=== PATIENT | male | born 1930 | race Caucasian/White ===

== ENCOUNTER 2016-08-15 10:00 | Outpatient (CLI) | payer MEDICARE, OTHER | END 2016-08-15 10:01 | disposition home or self-care (01) | DX: G30.9 Alzheimer's disease, unspecified (principal); F02.81 Dementia in other diseases classified elsewhere, unspecified severity, with behavioral disturbance; G20 Parkinson's disease; F32.9 Major depressive disorder, single episode, unspecified; Z91.81 History of falling; Z99.3 Dependence on wheelchair; Z79.82 Long term (current) use of aspirin; Z79.891 Long term (current) use of opiate analgesic; Z79.899 Other long term (current) drug therapy; Z66 Do not resuscitate; Z51.5 Encounter for palliative care ==

== ENCOUNTER 2016-10-30 09:15 | Outpatient (CLI) | payer MEDICARE, OTHER ==
--- NOTE | 2016-10-31 15:23 | CONSULTATION NOTE ---
DATE OF CONSULTATION: 10/30/2016 00:00:00 REQUESTING PROVIDER: Zahraa Hubbard MD TIME OF VISIT: 0915 to 10 a.m. TOPIC: Followup palliative care consult. Thank you, Dr. Hubbard, for asking the palliative care consult service to be involved in the care of y our patient. I am seeing the patient in his home setting, which is [facility] dementia unit, with a joint visit with his Kelly and to provide [id number] for a [id number]-[id number] wheelchair. EXAM LIMITATIONS: The patient has end-stage dementia with Parkinson's and behavioral disturbances. He has limited ability to participate in the exam. 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 These have improved in the context of he is more cooperative, less lashing out, only intermittent moaning. He does have fluctuating days that are both good and bad, and does have some sundowning related to this. He is quite willing to engage in conversation. He appears to have less fluency of his speech today, his words and sentences are yamilex rter, they are somewhat nonsensical, but occasionally do match the conversation. He does not appear t o recognize his and does spend probably a fair amount of time sleeping or nodding off, particula rly in his wheelchair. He does need to be fed. He does get impulsive at times and this, particularly in his current wheelchair, causes him to slip out. He has had no injury falls recently, but it is of concern. Thus, the initiation of obtaining a kpde-hj-[id number] wheelchair. SYMPTOM BURDEN: When asked, the patient denies any pain or discomfort. Staff reports he does fatigue quite easily. His appetite has been good. He has remained weight neutral, his weight in September was 181 .4. He does not appear to have any kind of shortness of breath. Does not appear to have any exacerbat ing symptoms as far as anxiety. His though perceives his quality of life as currently poor and p erceives it just "as existing." She is pleased that he is not having as many outbursts. PERFORMANCE STATUS: The patient is unable to feed himself because of his upper extremity tremulousnes s. He can self-propel in his wheelchair though this is difficult because of his awkward position. He is a maximum 2-person assist to the bathroom, is able to ambulate a few steps. He is dependent for al l ADLs and IADLs. ALLERGIES: NO KNOWN DRUG ALLERGIES. MEDICATIONS 1. Acetaminophen 2 tabs 650 mg b.i.d. 2. Aspirin 81 mg daily. 3. Citalopram 20 mg daily. 4. Galantamine extended release 8 mg twice daily. 5. Levothyroxine 50 mcg daily. 6. Lorazepam 0.5 mg half tab at noon, full tab at bedtime. 7. Amantadine 1 tab twice daily. 8. MiraLax 17 grams in 8 ounces b.i.d. 9. Quetiapine 25 mg 1 tab in the a.m., 50 mg 1 tab at 1 p.m. and 1 tab at 9 p.m. 10. Hydrocodone/acetaminophen 5/325 1 to 2 tabs every 6 hours as needed for pain. 11. Loratadine 10 mg as needed for runny nose. 12. Lorazepam 0.5 mg 1 to 2 tabs every 4 hours as needed for severe agitation. CODE STATUS: THE PATIENT IS A DO NOT ATTEMPT RESUSCITATION, COMFORT MEASURES ONLY, WELL NO MEDI VENKATESH ASSISTED NUTRITION, DETERMINE USE OR LIMITATION OF ANTIBIOTICS WITH COMFORT GOAL. THE FAMILY 'S GOALS FOR HIM ARE TO FOCUS ON COMFORT, AVOID HOSPITALIZATION AT END OF LIFE, A COMFORTABLE AND RES PECTFUL HERE AT THE FACILITY. BRIEF SOCIAL HISTORY: The patient is living at [facility]. His visits about every other day. Cira esparza herself is elderly and has health problems. His continues to struggle both financially and emo tionally with his ongoing quality of life and needing to be at [facility]. She does have the support of her family. REVIEW OF SYSTEMS: This is limited by available information. He has not had any reported symptoms of swallowing difficulty. He is incontinent of both bowel and bladder. He denies chest pain or shortness of breath. He denies pain and it does appear as he has gotten further out from that his pain has imp roved. He does get an intermittent pain pill about once a week. PHYSICAL EXAMINATION GENERAL APPEARANCE: He does appear quite pale, making good eye contact. He does have watery eyes. He tries to engage in conversation and follow it. EYES: Normal on inspection. ENT: Mucous membranes are moist. It does not appear that he has any lesions on examination. He will b e going every 4 months for cleaning. He does have some baseline drooling. He has completed his work w ith speech therapy. NECK: Trachea midline, no JVD, no lymphadenopathy. RESPIRATORY: His breath sounds are diminished, but clear. CARDIOVASCULAR: His temperature is 96.5, pulse 76, blood pressure 148/72, O2 saturations were 95% at rest. ABDOMEN: Soft, flat, bowel tones are positive. SKIN: Dry. No noted injury of his extremities. He is in his wheelchair quite awkwardly, so unable to examine his coccyx though staff report is clear. EXTREMITIES: He does have some increased right hand contracture. 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 Is some what toning and unable to sit comfortably in the current wheelchair he has. He does lean to the right and tone back somewhat. His upper extremity tremors are right greater than left, those seem improved to date. PALLIATIVE CARE DISCUSSION: The patient denies he is worried about anything. He is less verbal today though still attempts to participate. I discussed with again pill burden, weighing the benefits and burdens of continuing on his Alzheimer medications. At this point in time we will continue, thoug h the evidence sways back and forth. Pain does seem to be improved. We will discontinue his acetamino phen scheduled and evaluate. IMPRESSION: This is an 85-year-old gentleman with progressive Alzheimer's, severe, with a comorbidity of Parkinson's. He does have fluctuating behavioral disturbances, but are better managed from his ba seline. He does seem to have perked up with some decreasing Seroquel. Will leave it at current level and continue to evaluate. RECOMMENDATIONS/COUNSELING DONE 1. Dementia with behavioral disturbances. He is not needing any increased lorazepam, has tolerated th e decrease in Seroquel. perceives this as more helpful, has not seem to have impacted his fluctu ations in mood. 2. Constipation, currently resolved. 3. Chronic hip pain. This appears to be improved as well. Will discontinue the scheduled acetaminophe n. 4. Advanced care planning. Continue to revisit quality of life issues and focus on things that are no t life-prolonging but enhancing for his comfort. 5. Pqyf-du-hcho for obtaining a mvqu-ul-fsxfj wheelchair. In agreement with physical therapy [facility] ir seating and mobility evaluation. The patient has had continued functional and cognitive decline, d oes need a utip-rx-knzvm wheelchair with a head rest. He is unable to support, he bends forward with his Parkinson's, he is unable to reposition himself and has high risk for pressure sores. He is incon tinent of bowel and bladder. The aujd-qs-zukqh would provide improved posture and ability to particip ate in meals and activities. Currently will need also, as patient's disease progresses, for safety fo r swallowing as well as management of his secretions. TIME SPENT: Forty-five minutes with greater than 50% of this done in counseling and coordination of c are within the facility, coordination with rehabilitation services as well as with clinical staff. JOB #: [id number] EXT JOB #:[id number]
== END 2016-10-30 09:16 | disposition home or self-care (01) ==
LOC: PC 09:15
PROVIDERS: ATTEND Nurse Practitioner Adult Health
DX: Z51.5 Encounter for palliative care (principal); G20 Parkinson's disease; F02.81 Dementia in other diseases classified elsewhere, unspecified severity, with behavioral disturbance; M25.559 Pain in unspecified hip; Z79.82 Long term (current) use of aspirin; Z66 Do not resuscitate

== ENCOUNTER 2017-03-07 13:15 | Outpatient (CLI) | payer MEDICARE, OTHER ==
--- NOTE | 2017-03-07 18:10 | CONSULTATION NOTE ---
Palliative Care Follow Up - Referral Referring Provider: Heather Hubbard MD Time of Visit: 1199-4038 Referral setting: Assisted living Referral Reason: Parkinsons - Information Sources Records reviewed: RN notes reviewed History/Review of Systems obtained from: Family, Caregiver Exam limitations: Clinical condition (Patient with susanna bazzi; very lethargic through exam) - History of Present Illness Update Brief HPI Update: This is an 86-year-old gentleman with Alzheimer's type dementia mixed with vascular dementia and noted behavioral disturbances. His underlying diagnosis is actually Parkinson's which he has had for greater than 20 years. I last saw him in October, he has continued to decline both functionally and cognitively. He is now mostly wheelchair bound, using Sadaf lift for transfers, unable to feed himself at all. He is sleeping more probably about 60% the time during waking hours. Is up for meals and some activities. Cognitively he today presents with word rose mary, his reports he still recognizes her but is having most nonsensical speech. Currently now his responses are not matching conversation. 's main concern is has been his extended sleeping time, and review of his medications they had actually overmedicated him with the Lorazepam for about 2 weeks, she reports this would match her time of observation. She was not aware of this mistake being made. We had considered decreasing his Seroquel, as he has had decline, and may not need the current dosing. She is in agreement for trialing this, he still has some moaning at times, this is usually response to anxiety. Patient has had a new wheelchair, tilt in space, this has resulted in less falls, they have also moved him closer to the other wall and using a wedge to help with him getting out of bed unsupervised. Social History - Living Situation Living arrangement: Assisted living Support System: Kelly comes and visits every other day, she she comes at lunch to assist with feeding. He does have other children and grandchildren that visit intermittently, he does enjoy the visits but does not recognize them currently Medications/Allergies - Medications Home Medications: Ambulatory Orders Medication Instructions Recorded Confirmed Aspirin [Low Dose Aspirin EC] 81 mg PO DAILY 07/20/13 03/07/17 Memantine HCl [Namenda] 10 mg PO BID 07/20/13 03/07/17 Galantamine [Razadyne] 8 mg PO BID 09/06/15 03/07/17 Levothyroxine Sodium 50 mcg PO DAILY 09/06/15 03/07/17 Acetaminophen 500 mg PO Q4HR PRN 03/07/17 03/07/17 Citalopram [CeleXA] 10 mg PO DAILY 03/07/17 03/07/17 HYDROcod/ACETAM 5/325 [[place] 5/325] 1 - 2 tab PO Q6HR PRN 03/07/17 03/07/17 LORazepam [Ativan] 0.5 mg PO DAILY PM 03/07/17 03/07/17 Loratadine 10 mg PO DAILY PRN 03/07/17 03/07/17 Lorazepam 0.5 mg PO Q4HR PRN 03/07/17 03/07/17 Polyethylene Glycol 3350 [Miralax] 17 gm PO BID 03/07/17 03/07/17 QUEtiapine [SEROquel] 25 mg PO BID 03/07/17 03/07/17 Quetiapine Fumarate 50 mg PO QPM 03/07/17 03/07/17 - Allergies Allergies/Adverse Reactions: Allergies Allergy/AdvReac Type Severity Reaction Status Date / Time No Known Drug Allergies Allergy Verified 09/06/15 01:17 Review of Systems - Constitutional Constitutional: reports: Weight gain (weight last week was 184; has remained about this) - Eyes Eyes: reports: Corrective lenses - Genitourinary Genitourinary: reports: Incontinence - Musculoskeletal Musculoskeletal: reports: Other (fairly stiff and difficult transfers with sadaf ) - Psychiatric Psychiatric: reports: Aggitation, Behavior disturbances - Other Findings Other Findings: Limited ROS with cognitive status; reviewed with Physical Exam - Vital Signs Temperature: 96.7 C Pulse Rate: 57 Respiratory Rate: 16 O2 Saturation: 95 (ra @ rest) Blood Pressure: 122/72 - Physical Exam General Appearance: positive: Lethargic Eyes Bilateral: positive: Conjunctivae nml ENT: positive: No signs of dehydration Neck: positive: Trachea midline, Stiff neck Cardiovascular: positive: Regular rate & rhythm Respiratory: positive: Diminished in bases Abdomen: positive: Non-tender, Soft, Nml bowel sounds Skin: positive: Pallor, Dryness Extremities: positive: No pedal edema Neurologic/Psychiatric: positive: Disoriented to person, Disoriented to place, Disoriented to time, Unintelligible speech, Flat affect Palliative Care - POLST Patient has POLST: Yes POLST Status: DNR, Comfort Measures Pain: No pain, Comment (patient occasionally has headaches per ; staff report no further pain behaviors or issues noted) Performance Status: Patient dependent for all ADLs, is now a total feed, is a Sadaf lift into the bed. - Palliative Care Discussion: Met with Kelly his , counseling and reflection on does help on this journey has been. He is remained without infection, no further falls, and has had slow progressive decline. She does reflect this would not be considered quality of life for him, the goal is to avoid hospitalization, and focus on comfort. His roommate recently , she is aware that his situation is tenuous , and has been trying to take some breaks herself. Impression and Recommendations - Palliative Care Impression: This is an 86-year-old gentleman with progressive Alzheimer's, moderate to severe, with a comorbidity of Parkinson's. He has presented with increased lethargy, sleeping more, and less behavioral outbursts. Patient has demonstrated both functional and cognitive decline since last visit in October, 's goals are continue to focus on comfort. Recommendations/Counseling Done: 1. Dementia with behavioral disturbances. And patient has not needed as needed Lorazepam, has tolerated decrease in Seroquel, will continue to work on titration. Will discontinue Ativan at lunchtime, patient is reportedly going right to bed after lunch and is quite sedated. This also is attributed to overmedication for almost a week. comes about lunchtime, would like him to be more awake and interactive, will see if this impacts his anxiety and/or agitation but will go ahead and titrate Seroquel at lunchtime down from 50-25 mg , and change back to Lorazepam to as needed and not scheduled at noon. 2. Constipation, currently resolved. 3. Advanced care planning. I am discussed goals of care with , continue to revisit quality of life issues, support and anticipatory guidance provided to . Time Spent: 45 minutes with greater than 50% done in counseling with the regarding anticipatory guidance, coordination of care with clinical staff for management of medications, will be titrating meds down, to call if behavioral disturbances worsen with anxiety and agitation
== END 2017-03-07 13:16 | disposition home or self-care (01) ==
LOC: PC 13:15
PROVIDERS: ATTEND Nurse Practitioner Adult Health
DX: Z51.5 Encounter for palliative care (principal); G30.9 Alzheimer's disease, unspecified; F02.81 Dementia in other diseases classified elsewhere, unspecified severity, with behavioral disturbance; G31.83 Neurocognitive disorder with Lewy bodies; F01.51 Vascular dementia, unspecified severity, with behavioral disturbance; R53.83 Other fatigue; Z66 Do not resuscitate

== ENCOUNTER 2017-06-13 17:12 | Outpatient (CLI) | payer MEDICARE, OTHER ==
--- NOTE | 2017-06-13 18:32 | CONSULTATION NOTE ---
Palliative Care Follow Up - Referral Referring Provider: Dr. Hubbard Time of Visit: 8118-1395 Referral setting: Assisted living Referral Reason: Dementia with Behavioral disturbanced - Information Sources Records reviewed: RN notes reviewed, Previous records reviewed History/Review of Systems obtained from: Family (With Kelly his ) Exam limitations: Clinical condition (Patient mostly nonverbal today, does have underlying vascular/Alzheimer's dementia.) - History of Present Illness Update Brief HPI Update: This is an 86-year-old gentleman with Alzheimer's type dementia mixed with vascular dementia, has had noted behavioral disturbances. He does have an underlying diagnosis of Parkinson's for greater than 20 years. He continues to decline both functionally and cognitively though has seemed to have reached his stabilized point. He is wheelchair-bound, the tilt in space wheelchair has made a huge difference as far as no further falls. He has a Sadaf lift most days into the bed. He has still been eating, and in fact has had some weight gain. He does pocket food at times, but no noted choking. He is unable to feed himself mostly because of upper extremity tremors. He is speaking less, when trying to arouse him skipping what he was was going on today, he reports " I am ". He does have a bit of a slight sense of humor still. reports this does have fluctuating status, sometimes more alert and other times more sleepy. His moaning and agitated behaviors have improved, it is mostly when they are just "fussing with him". He does have some days he is agitated but this is continued to improve. Social History - Living Situation Living arrangement: Assisted living Support System: Kelly comes and visits about every other day, she comes at lunchtime to assist with feeding. He continues to really like to eat. He does have intermittent visits from family members, particularly over the holidays. She reports he really enjoys visits from one in his great-grandchildren babies Medications/Allergies - Medications Home Medications: Ambulatory Orders Medication Instructions Recorded Confirmed Aspirin [Low Dose Aspirin EC] 81 mg PO DAILY 07/20/13 06/13/17 Memantine HCl [Namenda] 10 mg PO BID 07/20/13 06/13/17 Galantamine [Razadyne] 8 mg PO BID 09/06/15 06/13/17 Levothyroxine Sodium 50 mcg PO DAILY 09/06/15 06/13/17 Acetaminophen 500 mg PO Q4HR PRN 03/07/17 06/13/17 Citalopram [CeleXA] 20 mg PO DAILY 03/07/17 06/13/17 HYDROcod/ACETAM 5/325 [[place] 5/325] 1 - 2 tab PO Q6HR PRN 03/07/17 06/13/17 LORazepam [Ativan] 0.5 mg PO DAILY PM 03/07/17 06/13/17 LORazepam [Lorazepam] 0.5 mg PO Q4HR PRN 03/07/17 06/13/17 Loratadine 10 mg PO DAILY PRN 03/07/17 06/13/17 Polyethylene Glycol 3350 [Miralax] 17 gm PO BID 03/07/17 06/13/17 QUEtiapine [SEROquel] 12.5 mg PO 0600 03/07/17 06/13/17 Quetiapine Fumarate 50 mg PO QPM 03/07/17 06/13/17 Quetiapine Fumarate [Seroquel] 25 mg PO 1300 06/13/17 06/13/17 - Allergies Allergies/Adverse Reactions: Allergies Allergy/AdvReac Type Severity Reaction Status Date / Time No Known Drug Allergies Allergy Verified 09/06/15 01:17 Review of Systems - Constitutional Constitutional: reports: Fatigue, Weight gain (189 from 185 beginning of month;) - Eyes Eyes: reports: Vision loss, Corrective lenses - Ears, Nose & Throat Ears, Nose & Throat: reports: Hearing loss (had hearing aids not replaced; reports does not seem to bother him) - Gastrointestinal Gastrointestinal: reports: Good appetite - Genitourinary Genitourinary: reports: Incontinence - Musculoskeletal Musculoskeletal: reports: Transfer issues (sadaf in tilt in space; occasionally pivot transfer; no meds needed for hip or s/s pain) - Integumentary Integumentary: reports: Dryness - Neurological Neurological: reports: General weakness, Memory problems, Slurred speech - Psychiatric Psychiatric: reports: Behavior disturbances (Occasional moaning with agitation this is mostly related to personal care) - Endocrine Endocrine: reports: Hypothyroidism - Hematologic/Lymphatic Hematologic/Lymphatic: denies: Recurrent infections - All Other Systems All Other Systems: reports: Reviewed and negative Physical Exam - Vital Signs Temperature: 98.2 C Pulse Rate: 63 Respiratory Rate: 18 O2 Saturation: 95 (ra @ rest) Blood Pressure: 122/72 - Physical Exam General Appearance: positive: No acute distress, Lethargic Eyes Bilateral: positive: Normal inspection ENT: positive: No signs of dehydration Neck: positive: Trachea midline. negative: Lymphadenopathy (R), Lymphadenopathy (L) Cardiovascular: positive: Regular rate & rhythm Respiratory: positive: Diminished throughout Abdomen: positive: Non-tender, Soft, Nml bowel sounds Skin: positive: Pallor Extremities: positive: No pedal edema, Other (Patient does present with upper extremity tremors, reports patient tends to hold his hands so this does not happen. They do not appear different from last baseline examination) Neurologic/Psychiatric: positive: Unintelligible speech, Flat affect Palliative Care - POLST Patient has POLST: Yes POLST Status: DNR, Comfort Measures Pain: No pain Performance Status: He is dependent in all ADLs including feeding, dressing, and bathing.Kind functionally in fact he was able to do more pivot transfers, now is a total Sadaf lift, he is doing better than on the tilt in space as far as positioning. - Palliative Care Discussion: Patient appears to be stabilized out, no further behavioral issues that are impacting care or staff. Does have periods of agitation but have not needed extra medication. Patient has not had any recent infections, falls, or weight loss. Today he appears somewhat more lethargic reports this is a fluctuating status for him. She continues to perceive patient's quality of life as poor, but is quite a stressor as far as expenses for supporting him in the facility, her health has been fluctuating as well. She does perceive he is getting good care, that he is content, and remains somewhat amazed that he continues to plot along. The goal again would be to avoid hospitalization, focus on comfort, and at the time of an event are declined we visit transition to hospice. Impression and Recommendations - Palliative Care Impression: This is a 86-year-old gentleman who has remains somewhat stable over the last few months, his behavioral disturbances have not increased, he continues to demonstrate both functional and cognitive decline though this remains quite slow. Again the goals are to focus on comfort, this is reiterated as well as reflected upon with today. Recommendations/Counseling Done: 1. Dementia with behavioral disturbances. His behaviors continue to improve has not needed as needed Lorazepam, has tolerated this a few decreases Of Seroquel so far. We will go ahead and continue to decrease a.m. dosing from 25- 12.5mg. 2. Constipation currently resolved no adjustments to bowel program needed 3. Hypothyroidism, will draw TSH. 4. Advanced care planning. Counseling regarding anticipatory guidance with , continue to revisit goals of care. Patient has stabilized currently. Needs are getting met. Will draw BMP though to follow-up on medication review. Prognostication; Zev index, this is based on a population of [facility] adults age 65 and older looking at outcome of 6 month survival. Risk calculators cannot predict the future for any one individual, but they do give an estimate of how many people with similar factors will live and , but cannot identify who will live and . Patient score is 13.4 his risk of six- month mortality is 28%. Time Spent: 30 minutes with greater than 50% of this done in counseling with with anticipatory guidance review of concerns as well as coordination of care with staff and orders written
== END 2017-06-13 17:13 | disposition home or self-care (01) ==
LOC: PC 17:12
PROVIDERS: ATTEND Nurse Practitioner Adult Health
DX: Z51.5 Encounter for palliative care (principal); G30.9 Alzheimer's disease, unspecified; F02.81 Dementia in other diseases classified elsewhere, unspecified severity, with behavioral disturbance; K59.00 Constipation, unspecified; E03.9 Hypothyroidism, unspecified; G20 Parkinson's disease; Z99.3 Dependence on wheelchair; Z79.82 Long term (current) use of aspirin; Z79.891 Long term (current) use of opiate analgesic; Z79.899 Other long term (current) drug therapy; H54.7 Unspecified visual loss; H91.90 Unspecified hearing loss, unspecified ear; R32 Unspecified urinary incontinence; Z66 Do not resuscitate

== ENCOUNTER 2017-09-13 13:30 | Outpatient (CLI) | payer MEDICARE, OTHER ==
--- NOTE | 2017-09-13 16:17 | CONSULTATION NOTE ---
Palliative Care Follow Up - Referral Referring Provider: Dr. Zahraa Hubbard Time of Visit: [id number] Referral setting: [facility] (patient has been resident now for 4 years; it is taxing and considerable effort for him to leave the facility given his wheelchair bound status and dementia) Referral Reason: Dementia with Behavioral Disturbances - Information Sources Records reviewed: RN notes reviewed, Previous records reviewed History/Review of Systems obtained from: Family ( Kelly), Caregiver ( update from clinical staff) Exam limitations: Clinical condition (patient speaks in word salad; with limited day to day knowledge;) - History of Present Illness Update Brief HPI Update: This is an 86-year-old gentleman with Alzheimer's type dementia mixed with vascular, he also has underlying diagnosis of Parkinson's for greater than 20 years. He does have upper extremity tremors, is unable to feed himself, but is not having any trouble with choking. He does pocket food at times. He is speaking less, does present with word salad, tries to engage socially in conversation. and staff reports continues to have fluctuating status, but has not seem oversedated, he does take naps in the afternoon. He has had less agitation or moaning behaviors over the last several months. When we decreased his Seroquel by 12.5 mg in June, he had a few days of a little bit more agitation, but settled right down. His weight has remained stable, he has had no recurrent infections, he has had no skin breakdown. He remains fairly stable.His functional status is such though he does need Sadaf lift for transferring, he is wheelchair-bound, and the tilt in space has decreased his falls dramatically. Social History - Living Situation Living arrangement: Assisted living Support System: Kelly comes and visit him every other day. They have been for 67 years. He does seem to recognize her. Given the length of his illness, it is difficult for some of his children to come visit and see him as he is decline both functionally and cognitively Medications/Allergies - Medications Home Medications: Ambulatory Orders Medication Instructions Recorded Confirmed Aspirin [Low Dose Aspirin EC] 81 mg PO DAILY 07/20/13 09/13/17 Memantine HCl [Namenda] 10 mg PO BID 07/20/13 09/13/17 Galantamine [Razadyne] 8 mg PO BID 09/06/15 09/13/17 Levothyroxine Sodium 50 mcg PO DAILY 09/06/15 09/13/17 Acetaminophen 500 mg PO Q4HR PRN 03/07/17 09/13/17 Citalopram [CeleXA] 20 mg PO DAILY 03/07/17 09/13/17 LORazepam [Ativan] 0.5 mg PO DAILY PM 03/07/17 09/13/17 LORazepam [Lorazepam] 0.5 mg PO Q4HR PRN 03/07/17 09/13/17 Loratadine 10 mg PO DAILY PRN 03/07/17 09/13/17 Polyethylene Glycol 3350 [Miralax] 17 gm PO BID 03/07/17 09/13/17 QUEtiapine [SEROquel] 12.5 mg PO 0600 03/07/17 09/13/17 Quetiapine Fumarate 50 mg PO QPM 03/07/17 09/13/17 Quetiapine Fumarate [Seroquel] 12.5 mg PO 1300 06/13/17 09/13/17 Nystatin 100,000 units TOP TID 09/13/17 09/13/17 - Allergies Allergies/Adverse Reactions: Allergies Allergy/AdvReac Type Severity Reaction Status Date / Time No Known Drug Allergies Allergy Verified 09/06/15 01:17 Review of Systems - Constitutional Constitutional: reports: Weight stable - Eyes Eyes: reports: Corrective lenses - Ears, Nose & Throat Ears, Nose & Throat: reports: Dental decay - Gastrointestinal Gastrointestinal: reports: Good appetite. denies: Constipation - Genitourinary Genitourinary: reports: Incontinence - Musculoskeletal Musculoskeletal: reports: Stiffness, Transfer issues (using sadaf; mostly wheelchair bound) - Integumentary Integumentary: reports: Dryness, Hair changes ( reports "cradle cap") - Neurological Neurological: reports: General weakness, Memory problems, Slurred speech (word salad), Other (upper extremity tremors) - Psychiatric Psychiatric: reports: Behavior disturbances (occasional vocalizations but doing better). denies: Depression - Endocrine Endocrine: reports: Hypothyroidism - Hematologic/Lymphatic Hematologic/Lymphatic: denies: Recurrent infections - All Other Systems All Other Systems: reports: Reviewed and negative - Other Findings Other Findings: ROS limited Physical Exam - Vital Signs Temperature: 97.5 C Pulse Rate: 72 Respiratory Rate: 18 O2 Saturation: 96 (ra @rest) Blood Pressure: 132/62 - Physical Exam General Appearance: positive: No acute distress, Alert Eyes Bilateral: positive: Normal inspection, Other (eyebrows with flaking) ENT: positive: Other (face dry;) Neck: positive: Trachea midline, Stiff neck Cardiovascular: positive: Irregularly irregular Respiratory: positive: Breath sounds nml Abdomen: positive: Non-tender, Soft, Nml bowel sounds Skin: positive: Rash (left groin with bright red exacerbation of candidiasis;), Other (plaques noted on scalp;) Extremities: positive: No pedal edema, Other (chairbound; needing sadaf lift; cooperative in observed transfer) Neurologic/Psychiatric: positive: Mood/affect nml (appeared in good mood; attempting to engage in social banter), Disoriented to person, Disoriented to place, Disoriented to time Palliative Care - POLST Patient has POLST: Yes POLST Status: DNR, Comfort Measures Pain: No pain Performance Status: Patient dependent for transfers with 2 person Sadaf, receiving bathing 2 times a week. Patient unable to do on oral care, nor feed himself. No signs or symptoms of choking. does come every other day to assist with when meal, reports he has good appetite. He does have fluctuating level of consciousness, but does not seem overly sedated today. - Palliative Care Discussion: remains somewhat incredulous that patient continues to do as well as he is doing, he has had no infections, no weight loss, continues to eat with good intake. Continue to titrate back antipsychotic, she is in agreement with this. Focus still remains to treat for comfort only, no hospitalization, and end-of- life transition to hospice when appropriate Results - Lab Results Lab results reviewed: Yes Lab and Imaging Results: had sent labs to primary; TSH in normal range; triglycerides high-is not being treated, thought had agreed with PCP not to draw. BMP good. Impression and Recommendations - Palliative Care Impression: This is a 86-year-old gentleman who continues to remain somewhat stable over the last few months, his behavior disturbances have continued to be well managed , he does demonstrate both functional and cognitive decline though this remains quite slow in the process. Patient does have exacerbation of his left groin rash, again the goals are to focus on comfort issues, this is reiterated as well as reflected upon today with . Palliative care to provide ongoing support until transition to hospice. Recommendations/Counseling Done: 1. Dementia with behavioral disturbances. His behaviors continued to remain stable, has not needed as needed dosing of Lorazepam, has continued to tolerate decreases of Seroquel so far. Will go ahead and decrease 1300 dose of Seroquel from 25-12.5 mg 2. Constipation currently resolved no adjustments to bowel program needed. 3. hypothyroidism. TSH was within normal limits no changes needed 4. Candidiasis of left groin. Will increase his nystatin topical powder to 3 times a day for 5 days, then back to twice daily. 5. Advanced care planning. Continued counseling regarding anticipatory guidance with , visit revisiting goals of care. Addressed all questions and concerns. Time Spent: Time spent 45 minutes with greater than 50% of this done in counseling with and anticipatory guidance and coordination of care with staff as well as physical exam.Plan to see patient in 3 months unless other
== END 2017-09-13 13:31 | disposition home or self-care (01) ==
LOC: PC 13:30
PROVIDERS: ATTEND Nurse Practitioner Adult Health
DX: Z51.5 Encounter for palliative care (principal); G30.9 Alzheimer's disease, unspecified; F01.51 Vascular dementia, unspecified severity, with behavioral disturbance; G20 Parkinson's disease; E03.9 Hypothyroidism, unspecified; B37.2 Candidiasis of skin and nail; R32 Unspecified urinary incontinence; K02.9 Dental caries, unspecified; L21.9 Seborrheic dermatitis, unspecified; Z99.3 Dependence on wheelchair; Z79.82 Long term (current) use of aspirin; Z66 Do not resuscitate
CPT/HCPCS: 99310

== ENCOUNTER 2017-11-01 15:07 | Outpatient (CLI) | payer MEDICARE, OTHER | END 2017-11-01 15:08 | disposition critical access hospital (66) | LOC: EMS 15:07 | PROVIDERS: ATTEND Surgery | DX: R21 Rash and other nonspecific skin eruption (principal) | CPT/HCPCS: A0425; A0429 ==

== ENCOUNTER 2017-11-01 15:26 | Emergency (ER) | payer MEDICARE, OTHER ==
[2017-11-01] MEDS ORDERED: SODIUM CHLORIDE 0.9% 1,000 ML IV ONE (15:47)
--- NOTE | 2017-11-01 15:55 | ED Physician Documentation ---
History of Present Illness - Stated complaint Stated Complaint: R HIP/THIGH RASH - Chief complaint Chief Complaint: Fever - History obtained from History obtained from: Patient, Family, EMS - Additonal information Additional information: The patient is an 89-year-old male who [facility] via ambulance [facility], where the patient has had fever and chills for the past 2 days. Caretakers there have noticed redness at his right hip, and are concerned about septic hip. The patient denies pain, but further history from him is unreliable due to his dementia. He also has history of parkinsonism. 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 He is wheelchair-bound, and has a POLST form requesting comfort measures only. Review of Systems Unable to obtain: Dementia Constitutional: reports: Fever, Chills, Fatigue Nose: denies: Congestion Throat: denies: Sore throat Cardiac: denies: Chest pain / pressure Respiratory: denies: Dyspnea GI: denies: Abdominal Pain, Vomiting : denies: Dysuria Skin: reports: Other (Redness of skin at right hip.) Neurologic: reports: Confused. denies: Headache PD PAST MEDICAL HISTORY - Past Medical History Cardiovascular: High cholesterol Respiratory: None Neuro: Dementia, Parkinson's Endocrine/Autoimmune: HyPOthyroidism GI: GERD : Benign prostate hypertrophy HEENT: Chronic hearing loss Psych: None Musculoskeletal: None Derm: None - Past Surgical History Past Surgical History: No - Present Medications Home Medications: Ambulatory Orders Medication Instructions Recorded Confirmed Aspirin [Low Dose Aspirin EC] 81 mg PO DAILY 07/20/13 09/13/17 Memantine HCl [Namenda] 10 mg PO BID 07/20/13 09/13/17 Galantamine [Razadyne] 8 mg PO BID 09/06/15 09/13/17 Levothyroxine Sodium 50 mcg PO DAILY 09/06/15 09/13/17 Acetaminophen 500 mg PO Q4HR PRN 03/07/17 09/13/17 Citalopram [CeleXA] 20 mg PO DAILY 03/07/17 09/13/17 LORazepam [Ativan] 1 mg PO DAILY PM 03/07/17 09/13/17 LORazepam [Lorazepam] 0.5 mg PO Q4HR PRN 03/07/17 09/13/17 Loratadine 10 mg PO DAILY PRN 03/07/17 09/13/17 Polyethylene Glycol 3350 [Miralax] 17 gm PO BID 03/07/17 09/13/17 QUEtiapine [SEROquel] 12.5 mg PO 0600 03/07/17 09/13/17 Quetiapine Fumarate 50 mg PO QPM 03/07/17 09/13/17 Quetiapine Fumarate [Seroquel] 12.5 mg PO 1300 06/13/17 09/13/17 Nystatin 100,000 units TOP TID 09/13/17 09/13/17 cephALEXin [Cephalexin] 500 mg PO QID #40 tablet 11/01/17 - Allergies Allergies/Adverse Reactions: Allergies Allergy/AdvReac Type Severity Reaction Status Date / Time No Known Drug Allergies Allergy Verified 09/06/15 01:17 - Living Situation Living Arrangement: reports: Assisted living ([facility] at [facility]) - Social History Does the pt smoke?: No Smoking Status: Never smoker Does the pt drink ETOH?: No Does the pt have substance abuse?: No - Immunizations Immunizations are current?: No Immunizations: TDAP >10years/unknown - POLST Patient has POLST: Yes PD ED PE NORMAL - Vitals Vital signs reviewed: Yes (Afebrile) - General General: Other (Awake but confused elderly male with limited verbal communication. Appears fatigued.) - HEENT HEENT: Atraumatic, Other (Dry buccal mucosa, with poor dental hygiene.) - Neck Neck: Supple, no meningeal sign, No adenopathy, No JVD - Cardiac Cardiac: RRR - Respiratory Respiratory: No respiratory distress, Clear bilaterally - Abdomen Abdomen: Soft, Non tender - Back Back: No CVA TTP, No spinal TTP - Derm Derm: Other (Erythema of skin overlying the right hip, and the perianal area. Minimal associated warmth to palpation, and no tenderness to palpation.) - Extremities Extremities: No edema, No calf tenderness / cord, Other (Limited range of motion of major joints, including right hip, but no tenderness with range of motion.) - Neuro Neuro: Other (Awake, but drowsy. Limited verbal communication. Generalized weakness, and rigidity, consistent with Parkinsonism. No focal motor deficit detected.) Results - Vitals Vitals: Oxygen O2 Source [Without Activity] Nasal cannula O2 Source Patient supplied BIPAP - Labs Labs: Microbiology 11/01/17 16:15 Blood Culture - Preliminary Blood NO GROWTH AFTER 1 DAY 11/01/17 16:02 Blood Culture - Preliminary Blood NO GROWTH AFTER 1 DAY 11/01/17 17:12 Urine Culture - Preliminary Urine,Catheterized Laboratory Tests 11/01/17 11/01/17 11/01/17 16:02 16:02 16:02 WBC 6.6 RBC 4.63 L Hgb 13.4 L Hct 41.2 L MCV 88.8 MCH 29.0 MCHC 32.6 RDW 13.5 Plt Count 120 L MPV 8.8 Neut # 4.4 Lymph # 1.2 L [place] # 0.7 Eos # 0.3 Baso # 0.0 Absolute Nucleated RBC 0.00 Nucleated RBC % 0.0 Sodium 136 Potassium 3.6 Chloride 103 Carbon Dioxide 24 Anion Gap 9.0 BUN 19 Creatinine 1.0 Estimated GFR (MDRD) 71 L Glucose 129 H Lactic Acid 1.1 Calcium 8.2 L Total Bilirubin 0.6 AST 27 ALT 25 Alkaline Phosphatase 70 Total Protein 6.4 L Albumin 3.5 Globulin 2.9 Albumin/Globulin Ratio 1.2 Lipase 26 Urine Color Urine Clarity Urine pH Ur Specific [place] Urine Protein Urine Glucose (UA) Urine Ketones Urine Occult Blood Urine Nitrite Urine Bilirubin Urine Urobilinogen Ur Leukocyte Esterase Urine RBC Urine WBC Urine WBC Clumps Ur Squamous Epith Cells Urine Bacteria Ur Microscopic Review Urine Culture Comments 11/01/17 17:12 WBC RBC Hgb Hct MCV MCH MCHC RDW Plt Count MPV Neut # Lymph # [place] # Eos # Baso # Absolute Nucleated RBC Nucleated RBC % Sodium Potassium Chloride Carbon Dioxide Anion Gap BUN Creatinine Estimated GFR (MDRD) Glucose Lactic Acid Calcium Total Bilirubin AST ALT Alkaline Phosphatase Total Protein Albumin Globulin Albumin/Globulin Ratio Lipase Urine Color YELLOW Urine Clarity CLEAR Urine pH 6.0 Ur Specific [place] 1.025 Urine Protein NEGATIVE Urine Glucose (UA) NEGATIVE Urine Ketones NEGATIVE Urine Occult Blood MODERATE H Urine Nitrite NEGATIVE Urine Bilirubin NEGATIVE Urine Urobilinogen 4 H Ur Leukocyte Esterase SMALL H Urine RBC 6-10 H Urine WBC >25 H Urine WBC Clumps PRESENT Ur Squamous Epith Cells RARE Squamous Urine Bacteria Moderate H Ur Microscopic Review INDICATED Urine Culture Comments INDICATED - Rads (name of study) Right hip Radiology: Prelim report reviewed, EMP read contemporaneously, See rad report ( Previous ORIF of right femur. No acute fracture or dislocation.) PD MEDICAL DECISION MAKING - ED course Complexity details: reviewed old records, reviewed results, re-evaluated patient , considered differential, d/w patient, d/w family ED course: The patient's presentation is most consistent with cellulitis overlying the right hip, without clinical evidence to suggest septic joint. His urine is also positive for pyuria and bacteriuria, consistent with urinary tract infection. His presentation does not suggest pyelonephritis nor sepsis, with a white count of 6.6 and a normal lactate of 1.1. Treatment in the emergency department included administration of normal saline 1 L IV and ceftriaxone 1 g IV. He is being discharged with prescription for cephalexin. I discussed with him and his family the diagnosis, outpatient treatment and follow-up, as well as potentially worrisome signs or symptoms that should prompt reevaluation in the emergency department. He returned to [facility] via ambulance due to his chronic bedridden condition. Departure - Departure Disposition: 01 Home, Self Care Clinical Impression: Cellulitis Qualifiers: Site of cellulitis: extremity Site of cellulitis of extremity: lower extremity Laterality: right Qualified Code(s): L03.115 - Cellulitis of right lower limb Urinary tract infection Qualifiers: Urinary tract infection type: acute cystitis Hematuria presence: with hematuria Qualified Code(s): N30.01 - Acute cystitis with hematuria Dementia Qualifiers: Dementia type: Parkinson's disease Dementia behavioral disturbance: without behavioral disturbance Qualified Code(s): G20 - Parkinson's disease Condition: Fair Instructions: ED Infec Skin Cellulitis, ED UTI Cystitis Male Follow-Up: Zahraa Hubbard MD [Primary Care Provider] - Prescriptions: cephALEXin [Cephalexin] 500 mg PO QID #40 tablet Comments: Take cephalexin 4 times daily as prescribed. Discontinue Bactrim. Use Tylenol or ibuprofen if needed for fever or discomfort. Drink plenty of fluids. Follow up with your primary physician within 1 week. Call to schedule an appointment. Return to the emergency department if you develop increasing pain, fever with shaking chills, persistent vomiting, or otherwise worsening symptoms. Discharge Date/Time: 11/01/17 20:00
[2017-11-01 16:13] LABS: BASOPHILS % (AUTO) 0.7 %; EOSINOPHILS # (AUTO) 0.3 10^3/uL (0.0-0.7); EOSINOPHILS % (AUTO) 4.2 %; HGB - HEMOGLOBIN 13.4 g/dL (14.0-18.0); LYMPHOCYTES # (AUTO) 1.2 10^3/uL (1.5-3.5); LYMPHOCYTES % (AUTO) 18.5 %; MEAN CORPUSCULAR HGB CONC 32.6 g/dL (32.0-36.0); MEAN CORPUSCULAR VOLUME 88.8 fL (80.0-94.0); MEAN PLATELET VOLUME 8.8 fL (7.4-11.4); MONOCYTES # (AUTO) 0.7 10^3/uL (0.0-1.0); MONOCYTES % (AUTO) 10.8 %; NEUTROPHILS # (AUTO) 4.4 10^3/uL (1.5-6.6); NEUTROPHILS % (AUTO) 65.8 %; PLT - PLATELET COUNT 120 10^3/uL (130-450); RED BLOOD COUNT 4.63 10^6/uL (4.70-6.10); RED CELL DISTRIBUTION WIDTH 13.5 % (12.0-15.0); WHITE BLOOD COUNT 6.6 x10^3/uL (4.8-10.8)
[2017-11-01 16:19] LABS: ALBUMIN 3.5 g/dL (3.2-5.5); ALBUMIN/GLOBULIN RATIO 1.2 (1.0-2.2); BILIRUBIN,TOTAL 0.6 mg/dL (0.2-1.0); CALCIUM 8.2 mg/dL (8.5-10.3); TOTAL PROTEIN 6.4 g/dL (6.7-8.2)
--- NOTE | 2017-11-01 17:02 | XRAY Preliminary Report ---
Exam: XR HIP W/PELVIS 2-3V RT IMPRESSION: Previous ORIF of right femur. No acute fracture or dislocation. [facility] SITE ID: [id number]
--- NOTE | 2017-11-01 17:02 | XRAY Report ---
EXAM: RIGHT HIP AND PELVIS RADIOGRAPHY EXAM DATE: 11/01/2017 04:44 PM. HISTORY: Fever, with erythema right hip. COMPARISONS: 10/10/2015. TECHNIQUE: 1 view of the pelvis and 1 view of the hip. FINDINGS: Bones: There are findings of internal fixation of proximal femur fracture with dynamic compression sc rew and long intramedullary taj. The surgical hardware appears intact without hardware fracture. No c ortical bone step off. Joints: The joint space and alignment appears within normal limits. Soft Tissues: No dilated bowel loops. IMPRESSION: Previous ORIF of right femur. No acute fracture or dislocation. [facility] Referring Provider Line: [phone] SITE ID: [id number]
[2017-11-01 17:29] LABS: BILIRUBIN,URINE NEGATIVE (NEGATIVE); GLUCOSE, URINE (UA) NEGATIVE (NEGATIVE); KETONES,URINE (UA) NEGATIVE (NEGATIVE); LEUKOCYTE ESTERASE, URINE SMALL (NEGATIVE); NITRITE,URINE NEGATIVE (NEGATIVE); OCCULT BLOOD,URINE MODERATE (NEGATIVE); PROTEIN,URINE NEGATIVE (NEGATIVE); UROBILINOGEN,URINE 4 E.U./dL (NORMAL)
[2017-11-01 17:36] LABS: CLARITY,URINE CLEAR (CLEAR)
[2017-11-01] MEDS ORDERED: cefTRIAXone 1 GM in SODIUM CHLORIDE 0.9% MINIBAG 100 ML IV STA (17:55)
[2017-11-01 17:59] LABS: BACTERIA,URINE Moderate /HPF (None Seen); SQUAMOUS EPITHELIAL CELL,UR RARE Squamous (<= Few); WBC CLUMPS,URINE PRESENT
[2017-11-01 19:11] VITALS: BP 110/96
== END 2017-11-01 20:00 | disposition home or self-care (01) ==
LOC: EDUNIT# → ED 15:26
DX: L03.115 Cellulitis of right lower limb (principal); N30.01 Acute cystitis with hematuria; G20 Parkinson's disease; F02.80 Dementia in other diseases classified elsewhere, unspecified severity, without behavioral disturbance, psychotic disturbance, mood disturbance, and anxiety; Z79.82 Long term (current) use of aspirin; Z96.641 Presence of right artificial hip joint; Z99.3 Dependence on wheelchair
CPT/HCPCS: 51701; 80053; 81001; 81003; 83605; 83690; 85025; 87040; 87077; 87086; 87181; 96361; 96374; 99284

== ENCOUNTER 2017-11-01 20:03 | Outpatient (CLI) | payer MEDICARE, OTHER | END 2017-11-01 20:04 | disposition home or self-care (01) | LOC: EMS 20:03 | PROVIDERS: ATTEND Surgery | DX: N39.0 Urinary tract infection, site not specified (principal); L03.90 Cellulitis, unspecified; F03.90 Unspecified dementia, unspecified severity, without behavioral disturbance, psychotic disturbance, mood disturbance, and anxiety; Z74.01 Bed confinement status | CPT/HCPCS: A0425; A0428 ==

== ENCOUNTER 2017-11-06 09:30 | Outpatient (CLI) | payer MEDICARE, OTHER ==
--- NOTE | 2017-11-06 14:01 | CONSULTATION NOTE ---
Palliative Care Follow Up - Referral Referring Provider: Dr. Heather Hubbard Time of Visit: 930-03 Referral setting: Assisted living (patient lives in a dementia unit; it is a taxing and considerable effort for him to leave the facility other than by ambulance) Referral Reason: f/up on Cellulitis Right Hip/UTI - Information Sources Records reviewed: RN notes reviewed, Previous records reviewed History/Review of Systems obtained from: Family (spoke with Kelly previous to visit;), Caregiver (update from clinical staff) Exam limitations: Clinical condition (patient nonverbal and with advanced dementia) - History of Present Illness Update Brief HPI Update: This is 86-year-old gentleman with Alzheimer's type dementia mixed with vascular , who recently had a trip to the ED. He had presented with increasing redness to his right thigh, it was hot and fiery to the touch, had extended from localized area around incision down right thigh. Patient had also recently been diagnosed with a UTI and started on Bactrim. Given it was over his incision from his right hip surgery, and patient continued febrile, and attempt to be able to evaluate patient was sent to the ED after conversation with his . Did discuss looking for etiology only, no plans for aggressive intervention were planned. Patient was diagnosed with cellulitis, started on cephalexin 500 mg four times a day. Today patient on exam, had faded light pink area, no signs or symptoms of cellulitis, staff confirmed had improved dramatically. No open areas noted in skin, though patient does often have stool in his fingernails, and does scratch himself. Patient is to return to his previous level of functioning, eating without difficulty, and does not appear lethargic or impacted by his infection. Patient though has developed loose stool, they have only helped the MiraLAX for 1 day, will put it on hold. Patient does have a few pound weight loss, but is back to his baseline eating. Social History - Living Situation Living arrangement: Assisted living Support System: visits several times a week; lunchtime usually to assist with feeding. Is getting ready to go on vacation in end of November Medications/Allergies - Medications Home Medications: Ambulatory Orders Medication Instructions Recorded Confirmed Aspirin [Low Dose Aspirin EC] 81 mg PO DAILY 07/20/13 11/06/17 Memantine HCl [Namenda] 10 mg PO BID 07/20/13 11/06/17 Galantamine [Razadyne] 8 mg PO BID 09/06/15 11/06/17 Levothyroxine Sodium 50 mcg PO DAILY 09/06/15 11/06/17 Acetaminophen 500 mg PO Q4HR PRN 03/07/17 11/06/17 Citalopram [CeleXA] 20 mg PO DAILY 03/07/17 11/06/17 LORazepam [Ativan] 0.5 mg PO DAILY PM 03/07/17 11/06/17 LORazepam [Lorazepam] 0.5 mg PO Q4HR PRN 03/07/17 11/06/17 Loratadine 10 mg PO DAILY PRN 03/07/17 11/06/17 Polyethylene Glycol 3350 [Miralax] 17 gm PO .BID ON HOLD 03/07/17 11/06/17 QUEtiapine [SEROquel] 12.5 mg PO 0600 03/07/17 11/06/17 Quetiapine Fumarate 50 mg PO QPM 03/07/17 11/06/17 Quetiapine Fumarate [Seroquel] 12.5 mg PO 1300 06/13/17 11/06/17 cephALEXin [Cephalexin] 500 mg PO QID #40 tablet 11/01/17 11/06/17 Saccharomyces Boulardii [Florastor] 250 mg PO BID 11/06/17 11/06/17 - Allergies Allergies/Adverse Reactions: Allergies Allergy/AdvReac Type Severity Reaction Status Date / Time No Known Drug Allergies Allergy Verified 09/06/15 01:17 Review of Systems - Constitutional Constitutional: reports: Weight loss (187.5 loss of few pounds over last week; had decreased appetite with acute illness) - Eyes Eyes: reports: Vision loss - Ears, Nose & Throat Ears, Nose & Throat: reports: Dental decay, Dry mouth - Gastrointestinal Gastrointestinal: reports: Diarrhea (loose stools for 24-48 hours, in AB) - Genitourinary Genitourinary: reports: Incontinence - Musculoskeletal Musculoskeletal: reports: Stiffness, Transfer issues (needs sadaf lift for transfers) - Integumentary Integumentary: reports: Dryness - Neurological Neurological: reports: General weakness, Memory problems (advanced dementia; some word salad; constant moaning low jolly today) - Psychiatric Psychiatric: reports: Anxiety, Behavior disturbances - Hematologic/Lymphatic Hematologic/Lymphatic: reports: Recurrent infections (new UTI and cellulitis) - All Other Systems All Other Systems: reports: Reviewed and negative Physical Exam - Vital Signs Temperature: 96.4 C Pulse Rate: 69 Respiratory Rate: 18 O2 Saturation: 93 (ra @ rest) Blood Pressure: 122/72 - Physical Exam General Appearance: positive: Mild distress (found patient getting diaper change for diarrhea; settled down after activity) Eyes Bilateral: positive: Other (slightly reddened; has flakes in eyelashes) ENT: positive: Dry mucous membranes Neck: positive: No JVD, Trachea midline. negative: Lymphadenopathy (R), Lymphadenopathy (L) Cardiovascular: positive: Regular rate & rhythm Respiratory: positive: Diminished in bases. negative: Wheezes, Rales, Rhonchi Abdomen: positive: Non-tender, Soft, Abnml bowel sounds (hyperactive) Skin: positive: Other (bright reddened area around perirectal area after stooling; using barrier cream) Extremities: positive: Other (no pain noted with examination of hip; stiff limited ROM but no change from baseline) Neurologic/Psychiatric: positive: Unintelligible speech, Flat affect Palliative Care - POLST Patient has POLST: Yes POLST Status: DNR, Comfort Measures Pain: No pain Performance Status: Patient with tremors, unable to self-feed. Dependent for all ADLs, is a Sadaf transfer. - Palliative Care Discussion: Follow-up with , please patient is improved. She is getting ready to go on vacation, continues to want to focus on comfort, remains ambivalent as infections come up. Agreed would see patient during the week of 618 while she is gone, her son will be the default for DPOA during that time Results - Lab Results Lab results reviewed: Yes Impression and Recommendations - Palliative Care Impression: This is an 86-year-old gentleman with an acute UTI and cellulitis of his right hip and thigh. He is currently on antibiotics with good response, has returned to his previous level of functioning, though does have resulting diarrhea. Palliative care to continue to provide support as patient is facility bound, provide support and anticipatory guidance. Recommendations/Counseling Done: 1. Cellulitis right hip. This is resolving, unable to determine etiology. Staff will continue to monitor. 2. UTI. Patient's C&S came back with sensitivity to cephalexin, patient without any symptoms of concern, back to baseline eating. Requested they push fluids as able. 3. dementia with behavioral disturbances. Patient continues with intermittent moaning, does appear to be tolerating the decrease in Seroquel without any exacerbation of behavior. Will continue to monitor and titrate down as able. 4. Advanced care planning. Continue to weigh benefits and burdens as problems arise, with the focus on comfort. The patient has any life threatening events, goal is to have him transition to hospice support in the facility. Time Spent: 30 minutes with greater than 50% of this done in coordination of care with staff , follow-up with anticipatory guidance provided
== END 2017-11-06 09:31 | disposition home or self-care (01) ==
LOC: PC 09:30
PROVIDERS: ATTEND Nurse Practitioner Adult Health
DX: Z51.5 Encounter for palliative care (principal); L03.116 Cellulitis of left lower limb; N39.0 Urinary tract infection, site not specified; G30.9 Alzheimer's disease, unspecified; F02.81 Dementia in other diseases classified elsewhere, unspecified severity, with behavioral disturbance; K02.9 Dental caries, unspecified; R19.7 Diarrhea, unspecified; R25.1 Tremor, unspecified; Z66 Do not resuscitate; Z79.82 Long term (current) use of aspirin

== ENCOUNTER 2018-01-16 10:05 | Outpatient (CLI) | payer MEDICARE, OTHER ==
--- NOTE | 2018-01-16 19:35 | CONSULTATION NOTE ---
Palliative Care Follow Up - Referral Referring Provider: Dr. Heather Hubbard Time of Visit: 9185-2700 Referral setting: Assisted living Referral Reason: Dementia with behavioral distrubances - Information Sources Records reviewed: Previous records reviewed History/Review of Systems obtained from: Patient, Family ( Kelly present) , Caregiver (Bhumi CHERRY) Exam limitations: Clinical condition (patient with advanced dementia) - History of Present Illness Update Brief HPI Update: This is an 86-year-old gentleman with Alzheimer's type dementia mixed with vascular, who has been fairly stable for the last couple months. He was treated successfully for UTI and cellulitis right hip in October, no other noted issues. Patient has an underlying diagnosis of Parkinson's for greater than 20 years. He mostly has just upper extremity tremors, is unable to feed himself, and has progressed to having more difficulty with eating. He had started to exhibit coughing per his during meals, most pronounced on thin liquids and peas and green beans. Speech therapy is following at this point in time he is on mechanical soft's solids, and now with thickened nectar liquids which has improved. Patient is unable to follow safe swallow strategies to decrease his risk of aspiration. Patient's behaviors are well managed at this point in time, we have titrated back his antipsychotics and benzodiazepines as far as possible given his history and he still has some intermittent moaning and agitation behaviors. His weight is remained stable. He is mostly wheelchair bound and needs a Sadaf lift for transferring, he has not had any further falls with his tilt in space wheelchair. And actually is quite bright and interactive today. He is trying to make jokes with short phrases, and is making good eye contact. Social History - Living Situation Living arrangement: Assisted living (Patient's Kelly comes and visits him every other day at lunchtime to assist with feeding. They have been for over 67 years and he does seem to recognize her. Given the length of his illness is difficult for his children to come visit.) Medications/Allergies - Medications Home Medications: Ambulatory Orders Medication Instructions Recorded Confirmed Aspirin [Low Dose Aspirin EC] 81 mg PO DAILY 07/20/13 01/17/18 Memantine HCl [Namenda] 10 mg PO BID 07/20/13 01/17/18 Galantamine [Razadyne] 8 mg PO BID 09/06/15 01/17/18 Levothyroxine Sodium 50 mcg PO DAILY 09/06/15 01/17/18 Acetaminophen 500 mg PO Q4HR PRN 03/07/17 01/17/18 Citalopram [CeleXA] 20 mg PO DAILY 03/07/17 01/17/18 LORazepam [Ativan] 0.5 mg PO DAILY PM 03/07/17 01/17/18 LORazepam [Lorazepam] 0.5 - 1 mg PO Q4HR PRN 03/07/17 01/17/18 Loratadine 10 mg PO DAILY PRN 03/07/17 01/17/18 Polyethylene Glycol 3350 [Miralax] 17 gm PO .BID ON HOLD 03/07/17 01/17/18 QUEtiapine [SEROquel] 12.5 mg PO 0600 03/07/17 01/17/18 Quetiapine Fumarate 50 mg PO QPM 03/07/17 01/17/18 Quetiapine Fumarate [Seroquel] 12.5 mg PO 1300 06/13/17 01/17/18 Sodium Fluoride [Prevident 5000] 1 applic PO BID 01/17/18 01/17/18 - Allergies Allergies/Adverse Reactions: Allergies Allergy/AdvReac Type Severity Reaction Status Date / Time No Known Drug Allergies Allergy Verified 09/06/15 01:17 Review of Systems - Constitutional Constitutional: reports: Weight stable (185.4) - Eyes Eyes: reports: Vision loss, Corrective lenses - Respiratory Respiratory: denies: Cough, SOB at rest - Gastrointestinal Gastrointestinal: reports: Good appetite - Genitourinary Genitourinary: reports: Incontinence - Musculoskeletal Musculoskeletal: reports: Transfer issues (sadaf lift; bed and tilt in space) - Integumentary Integumentary: reports: Dryness - Neurological Neurological: reports: Memory problems, Slurred speech - Psychiatric Psychiatric: reports: Behavior disturbances (occasional moaning with care; not disruptive as before). denies: Depression, Anxiety - Endocrine Endocrine: reports: Hypothyroidism - Hematologic/Lymphatic Hematologic/Lymphatic: reports: Recurrent infections (last infection October) - Other Findings Other Findings: ROS limited; follow up with Bhumi CHERRY on behaviors; feels good balance right now of medications Physical Exam - Vital Signs Temperature: 96.7 C Pulse Rate: 54 Respiratory Rate: 18 O2 Saturation: 94 (ra @ rest) Blood Pressure: 122/68 - Physical Exam General Appearance: positive: No acute distress. negative: Anxious, Lethargic Eyes Bilateral: positive: Normal inspection ENT: positive: No signs of dehydration Neck: positive: No JVD, Trachea midline Cardiovascular: positive: Regular rate & rhythm Respiratory: positive: Breath sounds nml Abdomen: positive: Non-tender, Soft, Nml bowel sounds Skin: positive: Dryness Extremities: positive: No pedal edema Neurologic/Psychiatric: positive: Mood/affect nml (engaged and trying to participate in conversation; bright making eye contact), Disoriented to person, Disoriented to place, Disoriented to time Palliative Care - POLST Patient has POLST: Yes POLST Status: DNR, Comfort Measures Pain: No pain, Comment (no pain behaviors and patient denies) - Palliative Care Discussion: Met with , patient present. Reports she just takes it a day at a time and in stride, cannot believe he is still doing as well as he is. Patient does seem to be adapting, staff do like him, behaviors have diminished significantly. Her goal continues to be to focus on comfort and quality of life , is pleased with the results of thickening his fluids and the speech therapy referral Impression and Recommendations - Palliative Care Impression: This is an 86-year-old gentleman who currently has remained stable over the last few months, his behavioral disturbance have continued to be managed at current level. He does have low symptom burden, again the goals are to focus on comfort issues. Palliative care to continue provide support until transition to hospice. Recommendations/Counseling Done: 1. Dementia with behavioral disturbances. His behaviors continue remains stable , has not needed as needed dosing of lorazepam and has tolerated decreases of Seroquel. In conversation with both and staff will keep his current dosing as this seems to be a good balance. 2. Dysphagia. Patient has had some progression in swallowing difficulties. Speech therapy is working with modified thickened liquids with good success. Patient of course is at high risk for aspiration, but does enjoy eating. 3. Advanced care planning. Patient continues to get his care needs met and his current setting, continues to visit. Continue to weigh benefits and burdens of decisions as they come up with focus of comfort as goal. Palliative care to continue to provide support and be available visit planned in 2-3 months unless issues arrive. Time Spent: 35 minutes of given 50% of this done in counseling with regarding anticipatory guidance, coordination of care with staff.
== END 2018-01-16 10:06 | disposition home or self-care (01) ==
LOC: PC 10:05
PROVIDERS: ATTEND Nurse Practitioner Adult Health
DX: Z51.5 Encounter for palliative care (principal); G30.9 Alzheimer's disease, unspecified; F02.81 Dementia in other diseases classified elsewhere, unspecified severity, with behavioral disturbance; R13.10 Dysphagia, unspecified; G20 Parkinson's disease; R05 Cough; Z99.3 Dependence on wheelchair; Z79.82 Long term (current) use of aspirin; Z66 Do not resuscitate

== ENCOUNTER 2018-05-21 17:46 | Outpatient (CLI) | payer MEDICARE, OTHER ==
--- NOTE | 2018-05-21 21:18 | CONSULTATION NOTE ---
Palliative Care Follow Up - Referral Referring Provider: Dr. Giovana Hubbard Time of Visit: [id number] Referral setting: Assisted living Referral Reason: Dementia with behavioral disturbances - Information Sources Records reviewed: Previous records reviewed History/Review of Systems obtained from: Family (met with Kelly at visit), Caregiver (input from clinical staff; RN/DON at facility) Exam limitations: Clinical condition (patient with advanced dementia) - History of Present Illness Update Brief HPI Update: This is an 87-year-old gentleman with Alzheimer's type dementia mixed with vascular, who last week had a temporary change in condition. Patient does have underlying diagnosis of Parkinson's for greater than 20 years, he has upper extremity tremors which are worsening, unable to feed himself, and suspicion given his difficulty with eating most likely attributed to an episode of aspiration. Patient was more lethargic, difficult to awaken, had decreased intake, but has improved over the last several days. The staff and note patient has had ongoing decline in the context of more difficulty with intermittent choking, sleeping more, starting to bone again, though more at low grade. When asked why he is doing it, he reports he does not know, denies pain or distress, does seem to be somewhat of a self soothing behavior. Of note patient has been sliding out of wheelchair, though denies pain, does have pain and tenderness when palpated around shoulder joints and with passive range of motion. Wonder if patient is having increased difficulty related to osteoarthritis, when asked if the cold weather bothered his joints, it was an emphatic yes. Patient does try to engage with few words, though certainly less than in the past. He has had no falls, but has been sliding out of wheelchair, concern about discomfort. Social History - Living Situation Living arrangement: Assisted living (Patient has been at [facility] now for 5 years, does visit him on a regular basis to assist with feeding. They have been for over 67 years, she feels like he may no longer recognize her.) Medications/Allergies - Medications Home Medications: Ambulatory Orders Medication Instructions Recorded Confirmed Aspirin [Low Dose Aspirin EC] 81 mg PO DAILY 07/20/13 05/21/18 Memantine HCl [Namenda] 10 mg PO BID 07/20/13 05/21/18 Galantamine [Razadyne] 8 mg PO BID 09/06/15 05/21/18 Levothyroxine Sodium 50 mcg PO DAILY 09/06/15 05/21/18 Acetaminophen 650 mg PO TID 03/07/17 05/21/18 Citalopram [CeleXA] 20 mg PO DAILY 03/07/17 05/21/18 LORazepam [Ativan] 0.5 mg PO DAILY PM 03/07/17 05/21/18 LORazepam [Lorazepam] 0.5 - 1 mg PO Q4HR PRN 03/07/17 05/21/18 Loratadine 10 mg PO DAILY PRN 03/07/17 05/21/18 Polyethylene Glycol 3350 [Miralax] 17 gm PO BID 03/07/17 05/21/18 QUEtiapine [SEROquel] 12.5 mg PO 0600 03/07/17 05/21/18 Quetiapine Fumarate 50 mg PO QPM 03/07/17 05/21/18 Quetiapine Fumarate [Seroquel] 12.5 mg PO 1300 06/13/17 05/21/18 - Allergies Allergies/Adverse Reactions: Allergies Allergy/AdvReac Type Severity Reaction Status Date / Time No Known Drug Allergies Allergy Verified 09/06/15 01:17 Review of Systems - Constitutional Constitutional: reports: Fatigue, Weight gain (190). denies: Fever - Eyes Eyes: reports: Vision loss - Ears, Nose & Throat Ears, Nose & Throat: reports: Dry mouth - Respiratory Respiratory: reports: Cough (with eating at times) - Gastrointestinal Gastrointestinal: reports: Good appetite. denies: Constipation (moves bowels soft daily) - Genitourinary Genitourinary: reports: Incontinence - Musculoskeletal Musculoskeletal: reports: Stiffness, Muscle weakness, Transfer issues (needing sadaf lift to tilt n space wheelchair) - Integumentary Integumentary: reports: Dryness - Neurological Neurological: reports: General weakness, Memory problems, Slurred speech (few words; more difficult to understand; had been phrases a few months ago) - Psychiatric Psychiatric: reports: Other (moaning has resurfaced; not as loud nor in agitated state; unclear if distress) - All Other Systems All Other Systems: reports: Other (limited ROS related to dementia) Physical Exam - Vital Signs Temperature: 97.2 C Pulse Rate: 57 Respiratory Rate: 18 O2 Saturation: 95 (ra @ rest) Blood Pressure: 112/72 - Physical Exam General Appearance: positive: Alert Eyes Bilateral: positive: Normal inspection ENT: positive: No signs of dehydration Neck: positive: No JVD, Trachea midline, Stiff neck Cardiovascular: positive: Regular rate & rhythm Respiratory: positive: Diminished in bases. negative: Wheezes, Rales, Rhonchi Abdomen: positive: Non-tender, Soft, Nml bowel sounds Skin: positive: Pallor, Dryness. negative: Pressure wound Extremities: positive: No pedal edema Neurologic/Psychiatric: positive: Disoriented to person, Disoriented to place, Disoriented to time, Unintelligible speech, Flat affect Palliative Care - POLST Patient has POLST: Yes POLST Status: DNR, Comfort Measures Pain: Location (concern may have pain; trying to shift out of chair/discomfort with palpation of joints/ROM) Tiredness/Fatigue: Moderate (4-6) Drowsiness/Sedation: Moderate (4-6) Anxiety: Comment (unclear if increased moaning anxiety or self soothing;) Constipation: No Performance Status: Patient dependent on staff for all ADLs, is incontinent of bowel and bladder, needs Sadaf lift to transfer to tilt in space wheelchair. Patient used to only need to nap after lunch, now asked to go down after breakfast. Patient does need to be fed, is on modified mechanical soft diet and nectar thick fluids - Palliative Care Discussion: Met with Kelly, this is continued to be a long journey for them both. They have been at this more than 19 years, has been placed for the last 5 years. She reports at times he does have lucid moments, at one time he had, "I am tired". She does perceive his quality of life is quite poor, and feels at some level he is suffering, and would not want this for himself. We did discuss in context of his possible recent aspiration, most likely will continue to have recurrent episodes, and may lead to pneumonia. Counseling provided regarding ch oices of weighing benefits and burdens, at this point she would choose to focus on comfort and transition to hospice and not treat his pneumonia. We agreed this would be incongruence with what he would wish for himself if he were able to participate. She does feel her family is supportive, all are concerned about his ongoing decline and lack of quality of life. Follow-up with facility nurses Steve, regarding goals of care and current plan. We will continue to monitor patient's decline, and transition to hospice when meets criteria Impression and Recommendations - Palliative Care Impression: This is an 87-year-old gentleman with end-stage Alzheimer's mixed with vascular, and Parkinson's for 20 years. Patient has been fairly stable with only slow decline, until last week, most likely had an episode of aspiration. Patient has improved, concern regarding increased moaning, and possible pain behaviors. Palliative care providing support for pain and symptom management and transition to hospice when appropriate. Recommendations/Counseling Done: 1. Osteoarthritis suspect patient's may be having pain behaviors, will go ahead and trial acetaminophen 650 mg 3 times daily, to see if appears more comfortable. Patient attempting to reposition self, sliding out of tilt in space, increased low level moaning, tenderness to palpation over joints. 2. Dysphagia. Suspect patient had episode of aspiration pneumonitis last week, has since improved. Patient remains at risk for recurrence, as patient has had increased trouble with swallowing, pocketing foods, and intermittent choking. He is on a modified diet, patient cannot participate in aspiration precautions. Counseling provided regarding anticipatory guidance for treatment of pneumonia in the future, decision is made to focus on comfort and transition to hospice versus treatment of pneumonia given goals of care. 3. Dementia with behavioral disturbances. Patient presents with recurrence of moaning, these behaviors had essentially resolved, had been able to titrate back Seroquel. Will evaluate response to pain medication, if escalating or seems to be symptoms of agitation, will titrate back up Seroquel if indicated. Both staff and , will provide feedback over the next couple weeks. 4. Advanced care planning. FRANCES ST in place, counseling provided regarding anticipatory guidance, hospice criteria for transition, and plan for transitions in the future. Time Spent: 45 minutes has been 50% of this done in counseling with and staff and coordination of care with clinical staff regarding patient's care, symptom burden, and anticipatory guidance
== END 2018-05-21 17:47 | disposition home or self-care (01) ==
LOC: PC 17:46
PROVIDERS: ATTEND Nurse Practitioner Adult Health
DX: Z51.5 Encounter for palliative care (principal); G30.9 Alzheimer's disease, unspecified; F02.81 Dementia in other diseases classified elsewhere, unspecified severity, with behavioral disturbance; G20 Parkinson's disease; F01.51 Vascular dementia, unspecified severity, with behavioral disturbance; H54.7 Unspecified visual loss; Z79.82 Long term (current) use of aspirin; M19.90 Unspecified osteoarthritis, unspecified site; R13.10 Dysphagia, unspecified; Z66 Do not resuscitate

== ENCOUNTER 2018-06-11 19:24 | Outpatient (CLI) | payer MEDICARE, OTHER ==
--- NOTE | 2018-06-11 21:11 | CONSULTATION NOTE ---
Palliative Care Follow Up - Referral Referring Provider: Dr. Zahraa Hubbard Time of Visit: Referral setting: Assisted living Referral Reason: Aspiration pneumonia/Parkinsons/Alz - Information Sources Records reviewed: Previous records reviewed History/Review of Systems obtained from: Caregiver (clinical staff;) Exam limitations: Clinical condition (patient lethargic; severe dementia) - History of Present Illness Update Brief HPI Update: This is an 87-year-old gentleman I have been seen since February 2016, with advanced Dementia mixed Alzheimer's/vascular, progressive Parkinson's, who originally presented with significant behavioral disturbances including moaning, agitation, frequent falls and impulsivity, and concern whether patient was going to be able stay at [facility] related to his behaviors. With titration of his medications, including escalation of Seroquel, patient was managed over time, and has continued to improve to where he is currently managed on only small doses of the Seroquel, a couple scheduled doses of Lorazepam, and his baseline citalopram. He has had both cognitive and physical decline, this is been quite slow, punctuated only by a few acute care issues, but overall has not had any hospitalizations and has remained fairly stable until these last few months. He has had increased trouble with swallowing, had been evaluated by speech therapy with diet modifications, but this is been a progressive symptom attributed both to his dementia and Parkinson's. Last month he had started his moaning again, not to a disruptive level but concerned patient was having increased discomfort. We did trial 2 weeks of scheduled acetaminophen, without much improvement though no escalation in behaviors. There was concern at last visit on 05/21 patient had aspirated which led to a further declaration of goals of care with , with the decision made to not treat if he were to aspirate and go on to develop pneumonia. reports family, children, grandchildren had all been to visit over the holidays, patient has been more irritable and having increased coughing. Does appear over the last few days he has had more difficulty with aspirating, pocketing food, and now presents with significant cough, difficulty clearing secretions, and rhonchi throughout. He is afebrile, but lethargic, and has not been able to eat or drink without choking today. He was up in the chair for a little bit yesterday, but has been declining over the last several days, and does appear to be transitioning. Social History - Living Situation Living arrangement: Assisted living Support System: The patient has been at [facility] for 5 years, comes several times a week to assist with feeding. They are they are under private pay. Staff are quite fond and familiar with patient Medications/Allergies - Medications Home Medications: Ambulatory Orders Medication Instructions Recorded Confirmed Memantine HCl [Namenda] 10 mg PO DAILY MDD 2 more doses 07/20/13 06/11/18 and discontinue Citalopram [CeleXA] 20 mg PO DAILY 03/07/17 06/11/18 LORazepam [Ativan] 0.5 mg PO DAILY PM 03/07/17 06/11/18 LORazepam [Lorazepam] 0.5 - 1 mg PO Q4HR PRN 03/07/17 06/11/18 Polyethylene Glycol 3350 [Miralax] 17 gm PO BID 03/07/17 06/11/18 QUEtiapine [SEROquel] 12.5 mg PO 0600 03/07/17 06/11/18 Quetiapine Fumarate 50 mg PO QPM 03/07/17 06/11/18 Quetiapine Fumarate [Seroquel] 12.5 mg PO 1300 06/13/17 06/11/18 Hyoscyamine [Levsin] 0.125 - 0.25 mg SL Q4HR PRN 06/11/18 06/11/18 Morphine Sulfate [Morphine Sulf 5 mg PO .Q2 PRN 06/11/18 06/11/18 Oral (Roxanol)] - Allergies Allergies/Adverse Reactions: Allergies Allergy/AdvReac Type Severity Reaction Status Date / Time No Known Drug Allergies Allergy Verified 09/06/15 01:17 Review of Systems - Constitutional Constitutional: reports: Fatigue. denies: Fever, Chills, Poor appetite - Eyes Eyes: denies: Vision loss - Ears, Nose & Throat Ears, Nose & Throat: reports: Dry mouth - Respiratory Respiratory: reports: Cough, Sputum production - Gastrointestinal Gastrointestinal: reports: Other (choking today; sips fluid only) - Genitourinary Genitourinary: reports: Incontinence - Musculoskeletal Musculoskeletal: reports: Muscle weakness - Integumentary Integumentary: reports: Dryness - Neurological Neurological: reports: General weakness, Memory problems, Slurred speech - Psychiatric Psychiatric: reports: Anxiety, Behavior disturbances (Moaning with exam and repositioning; this is not new behavior, patient does not appear in pain or in distress but gets anxious and low to moan and communication.) - Endocrine Endocrine: reports: Hypothyroidism - All Other Systems All Other Systems: reports: Other (limited ROS) Physical Exam - Vital Signs Temperature: 97.7 C Pulse Rate: 96 Respiratory Rate: 24 O2 Saturation: 92 (ra @ rest) Blood Pressure: 112/72 - Physical Exam General Appearance: positive: Moderate distress, Lethargic Eyes Bilateral: positive: Other (conjunctivae reddened; eyes watering; no drainage) ENT: positive: Dry mucous membranes, Other (foul smell coming from mouth; has not cooperated with oral care) Neck: positive: Trachea midline Cardiovascular: positive: Regular rate & rhythm, Tachycardia Respiratory: positive: Rhonchi, Other (coughing spasms; turns red with effort and flushed; sputum rust colored that was removed with toothettes) Abdomen: positive: Non-tender, Soft Skin: positive: Pallor, Diaphoresis Extremities: positive: No pedal edema, Other (upper extremity tremors severe) Neurologic/Psychiatric: positive: Weakness, Flat affect Palliative Care - POLST Patient has POLST: Yes POLST Status: DNR, Comfort Measures Pain: Comment (does not appear in acute pain) Tiredness/Fatigue: Severe (7-10) Drowsiness/Sedation: Severe (7-10) Performance Status: Patient's baseline is usually to be up for meals and a Sadaf, he had been down for just afternoon naps, then progressed to morning and afternoon naps, has been spending more of the day sleeping through meals this last week or 2. Patient is a total feed, verbalization has been diminishing, not able to answer engage in any conversation today. - Palliative Care Discussion: Had left message for regarding visit today, and my concerns. has been sick with a cold for several days, has not been around since Saturday. Reports patient had been more irritable, though family had been visiting. She was seeing some changes, she is not surprised he is continued to decline. We did discuss at this point patient does present with aspiration pneumonia, we will not treat with antibiotics, but at times sometimes patients do recover as he had previously earlier last month. She does understand patient's decline could go quite quickly, or could even out and continue at a steady slow decline. We did review goals of care, she reiterated his current quality of life is quite poor, does feel at this point in time her goal is for him to be as comfortable as possible, which includes at this point and her understanding that we will offer fluids or food only if patient is awake otherwise will just keep patient's mouth moist with 2 thoughts. We reviewed I will be discontinuing all medications other than ones for comfort and to manage his anxiety and agitation as well as add morphine for breathlessness and any kind of pain or discomfort. She is in agreement with this. She is also in agreement as we discussed previously transition him to hospice and hospice support though he may pass before he gets admitted asthey are at this time planning to admit him on Saturday. Impression and Recommendations - Palliative Care Impression: This is an 87-year-old gentleman with long-standing dementia attributed to Alzheimer's/vascular, advanced Parkinson's, and now presents with aspiration pneumonia. Patient has had increasing dysphagia, pocketing of food, and increasing weakness. Incongruence with family goals, will treat for comfort and transition to hospice. Recommendations/Counseling Done: 1. Aspiration pneumonia. Patient does present with significant rhonchi, cough, and respiratory distress. Morphine 20 mg/ml RX written; 5 mg every 2 hours as needed for comfort. Facililty nurse will facilitate obtaining as soon as possible for comfort. Hyoscyamine 0.125 mg written for management of secretions. Instructed not to feed and less patient more awake and able to swallow, requested frequent oral care be provided. 2. Dementia with behavioral disturbances. Will leave on patient's current dosing of quetiapine and scheduled lorazepam, does have Lorazepam 0.5 mg every 4 hours as needed available as well. 3. Advanced care planning. Goals of care included not treating aspiration pneumonia recognizing he was at high risk for recurrent issues with his dysphagia. Confirmed goals of care with , transition to hospice with follow-up with hospice medical esthetician and manager flight. Comfort goals reviewed with clinical staff, medication management, and expected course. Time Spent: 45 minutes with greater than 50% of this done in coordination of care with clinical staff, , hospice. Anticipatory guidance as well as comfort focused care and medications per provided and education. Call to Dr. Hubbard with request for hospice order.
== END 2018-06-11 19:25 | disposition home or self-care (01) ==
LOC: PC 19:24
PROVIDERS: ATTEND Nurse Practitioner Adult Health
DX: Z51.5 Encounter for palliative care (principal); G20 Parkinson's disease; G30.9 Alzheimer's disease, unspecified; F02.81 Dementia in other diseases classified elsewhere, unspecified severity, with behavioral disturbance; I67.2 Cerebral atherosclerosis; F01.51 Vascular dementia, unspecified severity, with behavioral disturbance; J69.0 Pneumonitis due to inhalation of food and vomit; R13.10 Dysphagia, unspecified; R32 Unspecified urinary incontinence; F41.9 Anxiety disorder, unspecified; E03.9 Hypothyroidism, unspecified; Z66 Do not resuscitate